=== PATIENT | male | born 1990 | race Caucasian/White ===

== ENCOUNTER 2023-03-23 20:54 | Emergency (ER) | payer OTHER, SELFPAY ==
[2023-03-23 21:04] VITALS: BP 118/66; PULSE 89; RESP 20; TEMP 37; O2SAT 98; BMI 27.9
--- NOTE | 2023-03-23 21:10 | DI.RAD.S_ITS ---
PROCEDURE: XR ANKLE LT MIN 3V INDICATIONS: pain, swelling TECHNIQUE: 3 views of the ankle were acquired. COMPARISON: None. FINDINGS: Bones: [id number] degenerative changes of the ankle joint, particularly of the anterior joint. Bone fragments are seen adjacent to the lateral and medial malleoli. Soft tissues: Soft tissue swelling is present, particularly adjacent to the lateral malleolus. IMPRESSION: No displaced acute fracture or dislocation. Age-indeterminate small bone fragment seen adjacent to the medial and lateral malleoli, possibly due to prior injury or degeneration. [id number] degenerative changes, particularly of the anterior joint. If there is high concern for further derangement, consider MRI evaluation. Dictated by: Caesar Whiteside M.D. on 03/23/2023 at 21:24 Approved by: Caesar Whiteside M.D. on 03/23/2023 at 21:26
[2023-03-23 21:15] VITALS: PULSE 80; O2SAT 100
--- NOTE | 2023-03-23 21:15 | ED.LOWEXIN ---
HPI - Extremity Injury (Lower) General Chief Complaint: Extremity Injury, Lower Stated Complaint: rolled left ankle Time Seen by Provider: 03/23/23 21:05 Source: patient Mode of arrival: Wheelchair History of Present Illness HPI Narrative: 52yoM presents for ankle injury that occured just prior to arrival. Patient was playing disc golf and rolled his L ankle. Triage note also reports head injury with neck pain - patient reports minor head injury without LOC and states neck pain is just tightness. He is here today only for the ankle injury. Marked swelling to L lateral malleolus Related Data Allergies Allergy/AdvReac Type Severity Reaction Status Date / Time No Known Allergies Allergy Verified 03/23/23 21:26 Review of Systems Review of Systems Narrative: Negative except as noted above Patient History Social History Smoking Status: Never smoker Smoking Status: Never smoker alcohol intake frequency: a few times a week Alcohol type: beer, wine and hard liquor Substance Use Type: does not use Exam Initial Vital Signs Initial Vital Signs: Vital Signs Temperature 98.6 F 03/23/23 21:04 Pulse Rate 89 03/23/23 21:04 Respiratory Rate 20 03/23/23 21:04 Blood Pressure 118/66 03/23/23 21:04 Pulse Oximetry 98 03/23/23 21:04 Oxygen Delivery Method Room Air 03/23/23 21:04 Const: Awake, alert, no acute distress, nontoxic appearing Neck: L paraspinal tenderness to palpation, no midline tenderness MSK: marked swelling L lateral malleolus, palpable DP pulses Skin: Warm, Dry, intact, no rashes Neuro: AO x3, CN II-XII grossly intact, moves all extremities Course Orders Ordered: ED Orders 03/23/23 21:10 XR ankle LT min 3V Stat Discontinued Medications Oxycodone HCl (Oxycodone Ir 5 Mg Tablet) 5 mg PO NOW ONE Stop: 03/23/23 21:15 Last Admin: 03/23/23 21:23 Dose: 5 mg Documented By: LAQUITA Vital Signs Vital signs: Vital Signs - 8 hr 03/23/23 21:04 03/23/23 21:15 03/23/23 21:16 Temperature 98.6 F Pulse Rate 89 80 Respiratory Rate 20 Blood Pressure 118/66 135/83 Pulse Oximetry 98 100 Oxygen Delivery Method Room Air 03/23/23 21:16 03/23/23 21:30 03/23/23 21:30 Temperature Pulse Rate 79 71 Respiratory Rate Blood Pressure 134/86 Pulse Oximetry 100 100 Oxygen Delivery Method MDM - Extremity Injury (Lower) Differential Diagnosis Differential diagnosis: Likely ankle sprain and strain, fracture of toe and ankle fracture MDM Narrative Medical decision making narrative: Inversion injury with swelling to left lateral ankle. Patient given pain medications, x-ray imaging reviewed, no acute fractures identified. There is an age-indeterminate bone fragment on the medial aspect of the ankle, however this is thought to be old and patient does not have any tenderness in this region. Placed an Jesse wrap bandage and given crutches. Instructed on the use of Tylenol and Motrin as well as ice and compression bandages for pain and swelling. Orthopedic referral provided. Advised on gradual return to physical activity. Discharge Plan Departure Patient Disposition: Home Clinical Impression: Ankle sprain and strain Instructions: DI for Ankle Sprain Activity Restrictions/Additional Instructions: Gradual return to activity. Please see your primary care doctor before resuming physical activity. Take tylenol and motrin as needed for pain. Elevate the extremity at rest. Apply ice as needed. Referrals: ProviderElsie [Primary Care Provider] - Mike Alexander MD [Physician] - Stand Alone Forms: Patient Portal/API
[2023-03-23 21:16] VITALS: BP 135/83; PULSE 79; O2SAT 100
[2023-03-23] MEDS: OXYCODONE IR 5 MG TABLET PO (21:23)
[2023-03-23 21:30] VITALS: BP 134/86; PULSE 71; O2SAT 100
== END 2023-03-23 22:02 | disposition home or self-care (01) ==
PROVIDERS: Emergency Provider Emergency Medicine
DX: S93.402A Sprain of unspecified ligament of left ankle, initial encounter (principal); S96.912A Strain of unspecified muscle and tendon at ankle and foot level, left foot, initial encounter; W18.40XA Slipping, tripping and stumbling without falling, unspecified, initial encounter; Y93.74 Activity, frisbee
CPT/HCPCS: 73610; 99283; 99284

== ENCOUNTER → 2025-02-13 07:43 | Outpatient (CLI) | payer OTHER, SELFPAY ==
--- NOTE | 2025-02-13 07:44 | DI.MRI.S_ITS ---
PROCEDURE: MR ANKLE LT WO CON
== END ==
LOC: MRI 07:44
PROVIDERS: PCP Family Medicine; Referring Provider Family Medicine; Visit Provider Family Medicine
DX: S90.02XA Contusion of left ankle, initial encounter (principal); S93.492A Sprain of other ligament of left ankle, initial encounter; S93.412A Sprain of calcaneofibular ligament of left ankle, initial encounter; M25.572 Pain in left ankle and joints of left foot; M25.472 Effusion, left ankle; G89.29 Other chronic pain; Z87.828 Personal history of other (healed) physical injury and trauma
CPT/HCPCS: 73721